=== PATIENT | male | born 1995 | race Caucasian/White ===

== ENCOUNTER 2018-09-18 15:31 | Inpatient (IN) | payer MEDICAID ==
[~2018-09-18] VITALS: Ht 162.6 cm; Wt 53.5 kg
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
--- NOTE | 2018-09-18 15:47 | NUR ---
DAMIAN INTER[employer] E COMMERCE SPECIALIST AT BEDSIDE
[2018-09-18] MEDS ORDERED: CEFAZOLIN 1 GM in IV D5W 50 ML IV ONE (16:00)
[2018-09-18] MEDS ORDERED: TDAP [DIPH/PERTUSSIS/TET] 0.5 ML VIAL IM ONE (16:00)
[2018-09-18] MEDS ORDERED: ACETAMINOPHEN ES 500 MG TABLET PO ONE (16:00)
[2018-09-18] MEDS ORDERED: IBUPROFEN 600 MG TABLET PO ONE ×2 (16:00→16:03)
[2018-09-18] MEDS ORDERED: ACETAMINOPHEN ES 500 MG TABLET ONE (16:02)
[2018-09-18 16:08] LABS: BASOPHILS # (AUTO) 0.1 /CMM (0.0-0.2); BASOPHILS % (AUTO) 0.4 % (0.0-2.0); EOSINOPHILS % (AUTO) 0.9 % (0.0-6.0); HEMATOCRIT 47 % (39-51); HEMOGLOBIN 16.2 g/dL (13.5-17.5); LYMPHOCYTES # (AUTO) 1.4 /CMM (0.8-4.8); LYMPHOCYTES % (AUTO) 10.1 % (20.0-44.0); MEAN CORPUSCULAR HGB CONC 35 g/dl (31.0-36.0); MEAN CORPUSCULAR VOLUME 88 fL (80-96); MONOCYTES # (AUTO) 0.8 /CMM (0.1-1.30); MONOCYTES % (AUTO) 6.1 % (2.0-12.0); NEUTROPHILS # (AUTO) 11.2 /CMM (1.8-8.9); NEUTROPHILS % (AUTO) 82.5 % (43.0-81.0); PLATELET COUNT (AUTO) 375 /CMM (150-450); RED BLOOD CELL COUNT(AUTO) 5.32 MIL/uL (4.5-6.0); WHITE BLOOD COUNT (AUTO) 13.5 K/uL (4.3-11.0)
--- NOTE | 2018-09-18 16:15 | NUR ---
PROVIDED MEAL TRAY, [place] BY SOLAR PHOTOVOLTAIC SYSTEMS ENGINEER
[2018-09-18 16:17] LABS: CALCIUM, SERUM 8.8 mg/dL (8.5-10.1); CARBON DIOXIDE 30 mmol/L (21-32); CHLORIDE 100 mmol/L (98-107); CREATININE 0.9 mg/dL (0.6-1.3); GLUCOSE 124 mg/dL (74-106); POTASSIUM 3.6 mmol/L (3.5-5.1); SODIUM SERUM 136 mmol/L (136-145); UREA NITROGEN, BLOOD 11 mg/dL (7-18)
[2018-09-18] MEDS ORDERED: VANCOMYCIN 1 GM VIAL ONE (16:17)
[2018-09-18] MEDS ORDERED: CEPHALEXIN MONOHYDRATE 500 MG CAPSULE PO ONE ×2 (16:18→16:30)
[2018-09-18 16:23] LABS: ALANINE AMINOTRANSFERASE 23 U/L (12-78); ALBUMIN 3.4 g/dL (3.4-5.0); ALKALINE PHOSPHATASE 95 U/L (46-116); ASPARTATE AMINOTRANSFERASE 21 U/L (15-37); BILIRUBIN,DIRECT 0.1 mg/dL (0.0-0.2); BILIRUBIN,TOTAL 0.4 mg/dL (0.2-1.0)
[2018-09-18 16:24] LABS: ACETAMINOPHEN < 0 ug/ml (10-30); ALCOHOL, BLOOD < 3 mg/dL (0-0)
[2018-09-18] MEDS ORDERED: VANCOMYCIN 1 GM in IV D5W 250 ML IV ONE (16:30)
--- NOTE | 2018-09-18 16:30 | NUR ---
PT REFUSED TDAP, PROMOTIONS ASSISTANT SALES MARKETING NOTIFIED
[2018-09-18 16:34] LABS: TOTAL PROTEIN, SERUM 7.4 g/dL (6.4-8.2)
--- NOTE | 2018-09-18 17:40 | NUR ---
URINE COLLECTED AND SENT TO STAT LAB
[2018-09-18 17:50] LABS: APPEARANCE,URINE Clear (CLEAR); BILIRUBIN,URINE Negative (NEGATIVE); BLOOD, URINE Trace-intact Ery/uL (NEGATIVE); COLOR,URINE Yellow (YELLOW); KETONES,URINE Negative (NEGATIVE); LEUKOCYTE ESTERASE ,URINE Negative (NEGATIVE); NITRITE, URINE Negative (NEGATIVE); PROTEIN,URINE Negative (NEGATIVE); UGLUCOSE Negative (NEGATIVE)
[2018-09-18] MEDS ORDERED: OLANZAPINE 5 MG TABLET ONE (18:27)
[2018-09-18 18:29] LABS: BACTERIA,URINE None seen /HPF (None Seen); RBC,URINE NONE SEEN /HPF (0-2); SQUAMOUS EPITHELIAL CELL,UR Few /HPF (None Seen); WBC,URINE NONE SEEN /HPF (0-3)
[2018-09-18 18:30] LABS: CALCIUM OXALATE CRYSTALS,UR Moderate /HPF (None Seen)
[2018-09-18] MEDS ORDERED: OLANZAPINE 5 MG/TAB.RAPDIS PO ONE (18:30)
--- NOTE | 2018-09-18 19:28 | NUR ---
PT CALM AND RESTING COMFORTABLY, VSS
--- NOTE | 2018-09-18 19:30 | NUR ---
RECEIVED PATIENT FROM ER FOR DX LEFT FOOT CELLULITIS. PATIENT AO X 3, ABLE TO MAKE NEEDS KNOWN; VERY SLEEPY AT THIS TIME. PER PATIENT, HE IS VERY TIRED. NO ACUTE DISTRESS NOTED. DENIES ANY PAIN AT THIS TIME. IV SITE PATENT, INTACT; FLUSHED. SKIN ASSESSMENT DONE. SAFETY REMINDERS GIVEN. ORIENTATION TO ROOM AND UNIT GIVEN TO PATIENT. ON LOW BED WITH BILATERAL UPPER SIDE RAILS UP. CALL ROSE WITHIN EASY REACH. WILL CONTINUE TO MONITOR. Addendum: 09/19/18 at 0650 by SEBASTIAN PERALTA RN CORRECT TIME OF ARRIVAL IS 2039
--- NOTE | 2018-09-18 19:52 | NUR ---
PT IS ASSIGNED TO MED SURG RM#: [id number], DX: CELLULITIS, AND ACCEPTING: NESHA OLIVER NP
[2018-09-18] MEDS ORDERED: VANCOMYCIN 1 GM in IV D5W 250 ML IV PRN (20:30)
[2018-09-18] MEDS ORDERED: ONDANSETRON HCL/PF 4 MG/2 ML VIAL IVP PRN (20:30)
[2018-09-18] MEDS ORDERED: ACETAMINOPHEN 325 MG TABLET PO PRN (20:30)
[2018-09-18] MEDS ORDERED: ZOLPIDEM TARTRATE 5 MG TABLET PO PRN (20:30)
[2018-09-18] MEDS ORDERED: MAG HYDROX/AL HYDROX/SIMETH 30 ML UDC PO PRN (20:30)
[2018-09-18] MEDS ORDERED: MAGNESIUM HYDROXIDE 30 ML UDC PO PRN (20:30)
[2018-09-18] MEDS ORDERED: Z GUARD REMEDY 2 OZ OINT TP PRN (20:30)
--- NOTE | 2018-09-18 20:32 | NUR ---
REPORT GIVEN TO TAPAN TRUJILLO
[2018-09-18 20:38] VITALS: BP 97/47
[2018-09-18 20:45] VITALS: BP 97/47
[2018-09-19] MEDS ORDERED: VANCOMYCIN 1 GM VIAL ONE (00:12)
[2018-09-19] MEDS ORDERED: VANCOMYCIN 1 GM in IV NS 0.9% 250 ML IV ONE (00:30)
--- NOTE | 2018-09-19 06:51 | NUR ---
PATIENT ASLEEP, EASILY AROUSABLE. RESPIRATIONS EVEN. NO SIGNS OF PAIN NOTED. DUE MED GIVE WITH NO ASE NOTED. NEEDS ATTENDED. SAFETY PRECAUTIONS AND COMFORT MEASURES IN PLACE. WILL GIVE REPORT TO DAY SHIFT FOR CONTINUITY OF CARE.
[2018-09-19 06:54] LABS: BASOPHILS # (AUTO) 0.1 /CMM (0.0-0.2); BASOPHILS % (AUTO) 0.8 % (0.0-2.0); EOSINOPHILS % (AUTO) 1.2 % (0.0-6.0); HEMATOCRIT 46 % (39-51); HEMOGLOBIN 15.8 g/dL (13.5-17.5); LYMPHOCYTES # (AUTO) 1.2 /CMM (0.8-4.8); LYMPHOCYTES % (AUTO) 9.8 % (20.0-44.0); MEAN CORPUSCULAR HGB CONC 35 g/dl (31.0-36.0); MEAN CORPUSCULAR VOLUME 87 fL (80-96); MONOCYTES # (AUTO) 0.8 /CMM (0.1-1.30); MONOCYTES % (AUTO) 6.3 % (2.0-12.0); NEUTROPHILS % (AUTO) 81.9 % (43.0-81.0); PLATELET COUNT (AUTO) 349 /CMM (150-450); RED BLOOD CELL COUNT(AUTO) 5.24 MIL/uL (4.5-6.0); WHITE BLOOD COUNT (AUTO) 12.2 K/uL (4.3-11.0)
--- NOTE | 2018-09-19 07:13 | NUR ---
RN OPENING NOTES PT WAS RECEIVED IN BED AT LOWEST AND LOCKED POSITION WITH SIDE RAILS UP X2, A/O X3, NO S/S OF PAIN OR DISTRESS NOTED, BREATHING EVEN AND UNLABORED ON RA, IV PATENT AND INTACT, SAFETY PRECAUTIONS IN PLACE, CALL LIGHT WITHIN REACH, WILL MONITOR ACCORDINGLY
[2018-09-19 07:18] LABS: CALCIUM, SERUM 8.6 mg/dL (8.5-10.1); CREATININE 0.8 mg/dL (0.6-1.3); MAGNESIUM 2.1 mg/dL (1.8-2.4); PHOSPHORUS 3.5 mg/dL (2.5-4.9); POTASSIUM 3.7 mmol/L (3.5-5.1)
[2018-09-19 08:00] VITALS: BP 123/82
[2018-09-19] MEDS ORDERED: LIDOCAINE 1% INJ 50 ML MDV IJ ONE (08:30)
[2018-09-19] MEDS: HYDROCODONE/APAP 5/325MG 1 EACH TABLET PO PRN ×2 (09:01→13:55)
[2018-09-19] MEDS ORDERED: FEE PK DOSING 1 MIN EA MC ONE (10:00)
[2018-09-19] MEDS: VANCOMYCIN 1.25 GM in IV D5W 500 ML IV SCH ×2 (11:12→17:01)
--- NOTE | 2018-09-19 12:30 | NUR ---
WOUND DEBRIDEMENT PERFORMED BY DR. MEJIAS AT THIS TIME
[2018-09-19] MEDS ORDERED: LORAZEPAM INJ 2 MG/ML VIAL IV STA (12:35)
--- NOTE | 2018-09-19 12:36 | NUR ---
ONE TIME DOSE OF ATIVAN 1MG GIVEN IV PER DR. MEJIAS ORDER
[2018-09-19 15:59] VITALS: BP 147/59
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
--- NOTE | 2018-09-19 18:38 | NUR ---
RN CLOSING NOTES PT IN BED AT LOWEST AND LOCKED POSITION WITH SIDE RAILS UP X2, A/O X3, NO PAIN OR DISTRESS AT THIS TIME, BREATHING EVEN AND UNLABORED ON RA, IV IS PATENT AND INTACT, WOUND DEBRIDEMENT WAS DONE TODAY ON THE LEFT FOOT, SAFETY PRECAUTIONS IN PLACE, CALL LIGHT WITHIN REACH, ALL NEEDS ATTENDED TO, WILL ENDORSE TO ONCOMING CAGER OPERATOR NURSE FOR CONTINUITY OF CARE
--- NOTE | 2018-09-19 19:55 | NUR ---
RN OPENING NOTES RECEIVED REPORT FROM DAYSHIFT TAPAN IRWIN. FOUND Pt ASLEEP. NO S/S OF ACUTE DISTRESS OR SOB NOTED. RESPIRATIONS EVEN AND UNLABORED. PER DAYSHIFT RN Pt IS A/OX3, VERBAL, AND ABLE TO MAKE NEEDS KNOWN. Pt IS AMB WITH NO ASSIST NEEDED. IV ACCESS ON LAC #20G; SL. SAFETY MEASURES IN PLACE. BED LOW, LOCKED, HOB ELEVATED, SIDE RAILS UP, CALL LIGHT & BEDSIDE TABLE WITHIN REACH. WILL CONTINUE TO MONITOR Pt's CONDITION AND SAFETY THROUGHOUT THE NIGHT.
[2018-09-19 20:00] VITALS: BP 128/74
[2018-09-20] MEDS: VANCOMYCIN 1.25 GM in IV D5W 500 ML IV SCH ×2 (02:41→10:14)
--- NOTE | 2018-09-20 06:41 | NUR ---
RN CLOSING NOTES NO SIGNIFICANT CHANGES IN Pt's CONDITION. Pt REMAINS STABLE PER BASELINE. NO S/S OF ACUTE DISTRESS OR SOB NOTED DURING THE NIGHT. Pt IS ASLEEP WITH EVEN AND UNLABORED RESPIRATIONS; EQUAL CHEST RISE AND FALL. ALL NEEDS MET AND ATTENDED TO. SAFETY MEASURES IN PLACE. WILL ENDORSE TO DAYSHIFT RN FOR Pt's CIRO.
[2018-09-20 08:00] VITALS: BP 130/74
--- NOTE | 2018-09-20 08:00 | NUR ---
MS RN AM NOTES RECEIVED Pt ASLEEP BUT AROUSABLE. NO S/S OF ACUTE DISTRESS OR SOB NOTED. RESPIRATIONS EVEN AND UNLABORED. Pt IS A/OX3, VERBAL, AND ABLE TO MAKE NEEDS KNOWN. Pt IS AMB WITH ASSIST. IV ACCESS ON LAC #20G; SL. SAFETY MEASURES IN PLACE. BED LOW, LOCKED, HOB ELEVATED, SIDE RAILS UP, CALL LIGHT & BEDSIDE TABLE WITHIN REACH. WILL CONTINUE TO MONITOR Pt's CONDITION AND SAFETY.
[2018-09-20 11:23] LABS: BASOPHILS # (AUTO) 0.1 /CMM (0.0-0.2); BASOPHILS % (AUTO) 0.8 % (0.0-2.0); EOSINOPHILS % (AUTO) 1.4 % (0.0-6.0); HEMATOCRIT 35 % (39-51); HEMOGLOBIN 10.3 g/dL (13.5-17.5); LYMPHOCYTES # (AUTO) 1.5 /CMM (0.8-4.8); LYMPHOCYTES % (AUTO) 19.1 % (20.0-44.0); MEAN CORPUSCULAR HGB CONC 30 g/dl (31.0-36.0); MEAN CORPUSCULAR VOLUME 103 fL (80-96); MONOCYTES # (AUTO) 0.6 /CMM (0.1-1.30); NEUTROPHILS # (AUTO) 5.6 /CMM (1.8-8.9); NEUTROPHILS % (AUTO) 70.7 % (43.0-81.0); PLATELET COUNT (AUTO) 197 /CMM (150-450); RED BLOOD CELL COUNT(AUTO) 3.34 MIL/uL (4.5-6.0); WHITE BLOOD COUNT (AUTO) 7.8 K/uL (4.3-11.0)
[2018-09-20 12:08] LABS: EOSINOPHILS % (MANUAL) 3 % (0-4); LYMPHOCYTES % (MANUAL) 20 % (16-48); MONOCYTES % (MANUAL) 7 % (0-11.0); NEUTROPHILS % (MANUAL) 70 (42-76)
[2018-09-20] MEDS: HYDROCODONE/APAP 5/325MG 1 EACH TABLET PO PRN ×2 (12:14→21:37)
--- NOTE | 2018-09-20 12:27 | NUR ---
PT REFUSED TDAP IN ER AND WAS SEEN BY DR SCHAFER AND CONVINCED HIM TO HAVE TDAP AND ITS IMPORTANCE-PT FINALLY AGREED TO HAVE TDAP IM SHOT.WITH ORDERS CARRIED OUT.
[2018-09-20] MEDS ORDERED: TDAP [DIPH/PERTUSSIS/TET] 0.5 ML VIAL IM ONE (13:00)
[2018-09-20 13:05] LABS: CALCIUM, SERUM 8.8 mg/dL (8.5-10.1); CREATININE 0.9 mg/dL (0.6-1.3); POTASSIUM 3.6 mmol/L (3.5-5.1)
[2018-09-20 16:00] VITALS: BP 129/91
[2018-09-20] MEDS: VANCOMYCIN 1 GM in IV D5W 250 ML IV SCH (18:04)
--- NOTE | 2018-09-20 18:31 | NUR ---
PT RESTING IN BED DENYING ANY PAIN OR DISTRESS.CALL LIGHT PLACED WITHIN REACH.
--- NOTE | 2018-09-20 19:08 | NUR ---
MS RN INITIAL NOTES Patient received in bed, watching TV, alert, oriented x 4. Breathing even and unlabored. Not in any distress. No complaints as of this time. Call glass within reach. Bed in low, locked position. Patient stable as endorsed by the morning RN. Will continue to monitor accordingly
[2018-09-20 20:00] VITALS: BP 130/81
[2018-09-20 20:40] VITALS: BP 130/82
--- NOTE | 2018-09-20 21:40 | NUR ---
RN NOTES Patient c/o pain on left foot, 02/17. [place] 5-325 given as ordered.
[2018-09-21] MEDS: VANCOMYCIN 1 GM in IV D5W 250 ML IV SCH ×2 (01:17→19:57)
--- NOTE | 2018-09-21 06:29 | NUR ---
MS RN CLOSING NOTES PATIENT IS ASLEEP WITH EVEN AND UNLABORED RESPIRATIONS; EQUAL CHEST RISE AND FALL. NO SIGNIFICANT CHANGES IN PATIENT'S CONDITION. PATIENT REMAINS STABLE PER BASELINE. NO S/S OF ACUTE DISTRESS OR SOB NOTED DURING THE NIGHT. ALL NEEDS MET AND ATTENDED TO. SAFETY MEASURES IN PLACE. WILL ENDORSE TO DAYSHIFT RN FOR CIRO.
--- NOTE | 2018-09-21 07:41 | NUR ---
MSRN. PT RECEIVED A&0X3, AWAKE AND TALKING TO ALEXIS JONES IN BED. PT TOLERATING ROOM AIR WITHOUT DISTRESS. PT REPORTS 5/10 PAIN TO R ARM AND REPORTS HX RECENT #. PT REPORTS 2/10 PAIN TO L FOOT. L FOOT DRESSING CLEAN AND INTACT, SPLINT IN.SITU AT R ARM. PT WITH IVC AT L FA INTACT AND SALINE FLUSH PATENT. PT BED IN LOWEST LOCKED POSITION WITH HANDRAILSX2 AND CALL ROSE WITHIN REACH. PT DENIES NEEDS AT THIS TIME. PT BRIEFED ON TODAY'S POC AND IS WITHOUT CONCERN OR COMPLAINT AT THIS TIME.
[2018-09-21 08:00] VITALS: BP 121/71
[2018-09-21] MEDS: HYDROCODONE/APAP 5/325MG 1 EACH TABLET PO PRN ×2 (09:19→20:56)
[2018-09-21 09:21] LABS: CALCIUM, SERUM 8.7 mg/dL (8.5-10.1); CREATININE 0.8 mg/dL (0.6-1.3); POTASSIUM 3.9 mmol/L (3.5-5.1)
[2018-09-21] MEDS: PIPERACILLIN /TAZOBACTAM 3.375 G in IV D5W 50 ML IV SCH ×3 (10:42→18:13)
[2018-09-21] MEDS ORDERED: LORAZEPAM INJ 2 MG/ML VIAL IV STA (11:26)
--- NOTE | 2018-09-21 12:00 | NUR ---
SEEN BY MD OS WITH WOUND CARE COMPLETED. PHOTO UPDATED.
[2018-09-21 16:00] VITALS: BP 119/72
--- NOTE | 2018-09-21 18:23 | NUR ---
MSRN. PT REMAINS A&0X3, RESTING IN BED WITH T.V. PT TOLERATING ROOM AIR WITHOUT DISTRESS. PT REPORTS ADEQUATE PAIN MANAGEMENT. L FOOT DRESSING CLEAN AND INTACT, REPLACED BY MD DURING SHIFT. SPLINT IN.SITU AT R ARM. PT WITH IVC AT L FA INTACT WITH IVAB AT THIS TIME. PT BED IN LOWEST LOCKED POSITION WITH HANDRAILSX2 AND CALL ROSE WITHIN REACH. ALL DAY NURSE DUTIES ATTENDED TO AND PT IS WITHOUT CONCERN OR COMPLAINT AT THIS TIME. WILL ENDORSE TO NIGHT NURSE AT BEDSIDE FOR CIRO.
--- NOTE | 2018-09-21 19:00 | NUR ---
MS RN INITIAL NOTES Received patient in bed, watching TV. Alert, oriented x 3. Breathing even and unlabored. Not in any distress. No complaints of pain as of this time. Splint on right arm. Call glass within reach. Bed in low, locked position. Patient stable as endorsed by the morning RN. Will continue to monitor accordingly
[2018-09-21 20:00] VITALS: BP 128/77
[2018-09-21] MEDS ORDERED: LEVOFLOXACIN (500MG) 500 MG TABLET PO SCH (20:00)
--- NOTE | 2018-09-21 20:57 | NUR ---
RN NOTES Patient complaining of 3/10 pain on L foot and 5/10 pain on right arm. [place] 5-325mg given as ordered
--- NOTE | 2018-09-22 | NUR ---
RN NOTES Came in to check on the patient, noticed that the IV was already on the floor. The patient accidentally pulled it out. Informed him that I need to put a new one in as he has IV antibiotics. Patient refused. As per patient, "No, not right now. Maybe later."
--- NOTE | 2018-09-22 03:30 | NUR ---
RN NOTES New IV inserted on left forearm g#22 with good blood return
[2018-09-22] MEDS: VANCOMYCIN 1 GM in IV D5W 250 ML IV SCH (03:56)
[2018-09-22 06:47] LABS: CREATININE 0.8 mg/dL (0.6-1.3); POTASSIUM 4.1 mmol/L (3.5-5.1)
--- NOTE | 2018-09-22 06:53 | NUR ---
MS RN CLOSING NOTES PATIENT IS ASLEEP WITH EVEN AND UNLABORED RESPIRATIONS; EQUAL CHEST RISE AND FALL. NO SIGNIFICANT CHANGES IN PATIENT'S CONDITION. PATIENT REMAINS STABLE PER BASELINE. NO S/S OF ACUTE DISTRESS OR SOB NOTED DURING THE NIGHT. ALL NEEDS MET AND ATTENDED TO. ALL DUE MEDICATIONS GIVEN ORDERED. SAFETY MEASURES IN PLACE. WILL ENDORSE CIRO TO ONCOMING RN.
[2018-09-22 08:04] VITALS: BP 117/70
--- NOTE | 2018-09-22 10:55 | NUR ---
PT REFUSED HOME HEALTH SERVICE FOLLOW UP INSPITE OF EXPLAINING THE RISKS/IMPORTANCE OF WOUND TREATMENT FOR HIS LT FOOT.PT REFUSED TO STAY IN HIS MOM'S AND AUNT'S HOME AND WOULD LIVE IN THE STREET.INSTRUCTED TO FOLLOW UP WITH PRIMARY DOCTOR IN ONE WEEK.PT KEEPS INSISTING THAT HE CAN MANAGE TO TAKE CARE OF HIS WOUND IN THE LT FOOT.WILL DO WOUND TEACHING AND PROVIDE SUPPLIES NEEDED FOR WOUND TX.INSTRUCTED TO FOLLOW UP WITH PRIMARY DOCTOR IN ONE WEEK AND TAKE THE PRESCRIBED MEDS ORDERED.
--- NOTE | 2018-09-22 11:45 | NUR ---
DISCHARGED HOME WITHOUT HOME HEALTH-PT REFUSED HOME HEALTH SERVICES.PT TEACHING GIVEN REGARDING WOUND TX AND SUPPLIES GIVEN FOR WOUND TX.INSTRUCTED TO FOLLOW UP WITH PRIMARY DOCTOR IN ONE WEEK AND TAKE THE PRESCRIBED LEVAQUIN ORDERED.IV H/ REMOVED TO LFA WITHOUT BLEEDING/SWELLING NOTED.DISCHARGED HOME WITH STABLE V/S.TYLENOL 650 MG PO GIVEN PRIOR TO WOUND TX.
== END 2018-09-22 11:45 | disposition home health service (06) | DRG 384 ==
LOC: ER 15:33 → MED 19:53
PROVIDERS: ADMIT Nurse Practitioner Acute Care; ATTEND Internal Medicine
PROC: 0JBR0ZZ Excision of Left Foot Subcutaneous Tissue and Fascia, Open Approach (ICD-10-PCS; principal; 2018-09-19)
DX: S91.332A Puncture wound without foreign body, left foot, initial encounter (principal); R45.851 Suicidal ideations; F20.0 Paranoid schizophrenia; L03.116 Cellulitis of left lower limb; D72.829 Elevated white blood cell count, unspecified; S52.201S Unspecified fracture of shaft of right ulna, sequela; F12.90 Cannabis use, unspecified, uncomplicated; F15.90 Other stimulant use, unspecified, uncomplicated; R73.9 Hyperglycemia, unspecified; X58.XXXA Exposure to other specified factors, initial encounter; Y92.9 Unspecified place or not applicable; F17.210 Nicotine dependence, cigarettes, uncomplicated; F31.9 Bipolar disorder, unspecified; Z59.0 Homelessness; Y93.9 Activity, unspecified; F90.9 Attention-deficit hyperactivity disorder, unspecified type; F19.10 Other psychoactive substance abuse, uncomplicated
CPT/HCPCS: 36415; 73620-TC; 80048-TC; 80076-TC; 80202-TC; 80305; 81000-TC; 83735-TC; 84100-TC; 85025-TC; 87070-TC; 87081-TC; 87186-TC; 90715; A4606; A6402; A6403; A6407; C1751; G0378; G0480; J0690; J2060; J2543; J3370; J3490; J7030; J7050; J7060; Z7610